=== PATIENT | male | born 1950 | race Caucasian/White ===

== ENCOUNTER 2016-11-30 11:40 | Inpatient (IN) | payer OTHER ==
[~2016-11-30 11:40] MED LIST: BACITRACIN 50,000 UNITS/10 ML SYR IRR ONE; BUPIVACAINE/EPI 0.25% 30 ML SDV ONE; CHLORHEXIDINE GLUC HIBICLENS 118 ML BTL TP ONE; THROMBIN (BOVINE) 20,000 UNIT VIAL TP ONE; morphINE PF 5 MG/10 ML INJ IT ONE
[2016-11-30] MEDS ORDERED: LIDOCAINE 1% 2 ML INJ ONE (11:58)
[2016-11-30] MEDS ORDERED: VANCOMYCIN HCL/NORMAL SALINE 250 ML IV ONE (12:30)
[2016-11-30] MEDS ORDERED: MIDAZOLAM 2 MG/2 ML VIAL ONE (13:24)
[2016-11-30] MEDS ORDERED: fentaNYL 250 MCG/5 ML INJ ONE (13:34)
[2016-11-30] MEDS ORDERED: PROPOFOL 200 MG/20 ML VIAL ONE ×2 (13:34→13:46)
[2016-11-30] MEDS ORDERED: ALBUTEROL 60 PUFFS/8 GM MDI IH PRN (13:36)
--- NOTE | 2016-11-30 13:36 | POSTOPPROG ---
Post Op Note Date of Operation: 12/01/16 Surgeon: Janna Be Forestry Supervisor: REILLY be PAC Anesthesia: GET(General Endotracheal) Pre-op Diagnosis: lumbar stenosis Post-op Diagnosis: lumbar stenosis Indication: lumbar stenosis, failure of meidcal management Procedure: L3/4 laminectomy/TLIF/PSF, L2/3 hemilaminotomy Inf/Abcess present in the surg proc area at time of surgery?: No EBL: 100cc Drains: Huang WOODARD Addendum - Addendum .: S: low back pain O: NAD A&Ox3 MAEx4 5/5 and equal in BUE and BLE. Plan -Advance diet as tolerated -Post op xrays pending -Optimize pain management -BETTYE x1 -DVT prophx: TEDS, SCDs, Lovenox okay POD1 -LSO when OOB -Please notify NS with any change in neuro/motor exam
[2016-11-30] MEDS ORDERED: POLYETHYLENE GLYCOL 3350 17 GM PKT PO PRN (13:37)
[2016-11-30] MEDS ORDERED: MAGNESIUM HYDROXIDE 30 ML UDCUP PO PRN (13:37)
[2016-11-30] MEDS ORDERED: LACTULOSE 20 GM/30 ML UDCUP PO PRN (13:37)
[2016-11-30] MEDS ORDERED: ACETAMINOPHEN 325 MG TAB PO PRN (13:37)
[2016-11-30] MEDS ORDERED: DIAZEPAM 10 MG/2 ML SYR IVP PRN (13:37)
[2016-11-30] MEDS ORDERED: ONDANSETRON 4 MG/2 ML VIAL IVP PRN (13:37)
[2016-11-30] MEDS ORDERED: ONDANSETRON DISINTEGRATING 4 MG TAB PO PRN (13:37)
[2016-11-30] MEDS ORDERED: BISACODYL 10 MG SUPP PR PRN (13:37)
[2016-11-30] MEDS ORDERED: KETAMINE 100 MG/10 ML SYR IVP ONE (13:45)
[2016-11-30] MEDS ORDERED: REMIFENTANIL HCL 1 MG VIAL ONE (13:45)
[2016-11-30] MEDS ORDERED: NS W/ 20 KCl/L 1,000 ML IV SCH (13:45)
[2016-11-30] MEDS ORDERED: PROPOFOL/EMULSION 500 MG/50 ML BOTTLE IV ONE (13:46)
[2016-11-30] MEDS ORDERED: morphINE PF 5 MG/10 ML INJ ONE (16:00)
[2016-11-30] MEDS ORDERED: fentaNYL 100 MCG/2 ML INJ ONE ×2 (16:32→16:53)
[2016-11-30] MEDS ORDERED: HYDROmorphONE/DILAUDID 2 MG/ML INJ ONE (16:53)
[2016-11-30] MEDS ORDERED: DIAZEPAM 10 MG/2 ML SYR ONE (17:29)
[2016-11-30] MEDS: SENNOSIDES/DOCUSATE SODIUM TAB PO SCH (20:03)
[2016-11-30] MEDS: METHOCARBAMOL 750 MG TAB PO PRN (20:03)
[2016-11-30] MEDS: INSULIN GLARGINE 100 UNITS/ML SYRINGE SC SCH (20:03)
[2016-11-30] MEDS: FAMOTIDINE 20 MG TAB PO SCH (20:03)
[2016-11-30] MEDS ORDERED: PNEUMOC 13-VAL CONJ-DIP CRM/PF 0.5 ML SYR IM ONE (20:17)
[2016-11-30] MEDS ORDERED: FAMOTIDINE 20 MG/NACL 50 ML IV SCH (21:00)
--- NOTE | 2016-11-30 22:48 | GOP ---
[f rep st] OPERATIVE REPORT DATE OF OPERATION: 11/30/2016 SURGEON: Luke Blount MD COMPLICATIONS: None. NEIGHBORHOOD COORDINATOR: Janna Be PA-C. ANESTHESIA: General PREOPERATIVE DIAGNOSIS: 1. L3-L4 severe spinal stenosis with spondylosis. 2. L2-L3 moderate central stenosis. 3. Low back pain and lower extremity radiculopathy. 4. Treatment refractory to nonoperative intervention. POSTOPERATIVE DIAGNOSIS: 1. L3-L4 severe spinal stenosis with spondylosis. 2. L2-L3 moderate central stenosis. 3. Low back pain and lower extremity radiculopathy. 4. Treatment refractory to nonoperative intervention. PROCEDURE PERFORMED: 1. Posterior arthrodesis with approach to L2, L3, L4. 2. Posterior fusion with bilateral pedicle screw placement into L3 and L4 from the Breaker system. 3. L3-L4 laminectomy with bilateral medial facetectomies. 4. Right-sided L2-L3 hemilaminotomy with medial facetectomy and central decompression. 5. Posterolateral fusion on the left between L3 and L4 with morselized autograft and allograft. 6. Right-sided L3-L4 transforaminal lumbar interbody fusion with a 9 mm titanium PEEK elevate cage filled with morselized autograft and allograft. 7. Use of intraoperative 3D Stealth navigation. 8. Use of intraoperative fluoroscopy, less than 1 hour physician time. 9. Use of neuromonitoring. 10. Use of operating microscope. 11. Injection of preservative-free intrathecal narcotics. FINDINGS: per imaging SPECIMENS: None. ESTIMATED BLOOD LOSS: 100 mL. INDICATIONS: The patient is a 66-year-old gentleman who presents with ongoing low back pain and lower extremity claudication. He had evidence of severe spinal stenosis at L3-L4 with moderate stenosis at L2-L3. After failing nonoperative intervention and after discussion of the risks, benefits, and alternatives, we decided to proceed forth with surgery as described above. DESCRIPTION OF PROCEDURE: Patient was brought to the operating theater and underwent general endotracheal anesthesia without complications. Venodynes and GURU hose and the appropriate lines were placed by Anesthesia. He was flipped prone onto the Huang table. All bony processes inspected and padded. The lower lumbar region was prepped and draped in the usual sterile surgical fashion. A time-out was completed per protocol, and the patient received antibiotics within 1 hour of incision. Using lateral fluoroscopy and a spinal needle, we picked our entry point to the L2 through L4 levels. This was marked in the midline and the incision infiltrated with Marcaine with epinephrine. The incision was taken down initially with the scalpel blade, and then using the monopolar, taken down to midline through the lumbodorsal fascia, and the subperiosteal dissection carried to the transverse process of L3 and L4. We also exposed the right side of L2-L3. Care was taken to preserve the L2-3 facet joints. Deep retractors were placed to maintain our exposure, and we confirmed our level using lateral fluoroscopy. We attached the 3D Stealth navigation clamp to the spinous process of L3 and completed a 3D Stealth navigation spin. Using 3D Stealth navigation, we placed the maritime pilot holes for the bilateral pedicle screws into L3 and L4. All holes were manually palpated with no evidence of any cortical breaches. We then tapped and placed 6.5 x 55 mm screws bilaterally into L3 and L4. Another 3D Stealth navigation spin demonstrated good placement of the hardware. At this point, the microscope was brought into field to assist with microscopic dissection and to maintain illumination and magnification. Using a combination of the bur tip on the drill bit, Kerrison punches and Leksell rongeur, we completed a right-sided L2-L3 hemilaminotomy with medial facetectomy and central decompression. We moved down to L3-L4 where we completed a full laminectomy with bilateral medial facetectomies. We resected the pars on the right side between L3-L4 and distracted the disc interspace. We completed a right-sided L3-L4 diskectomy and prepared the cartilaginous endplates. We measured the interbody space and placed a 9 mm titanium PEEK elevate cage filled with morselized autograft and allograft into the L3-L4 disk space. We packed additional morcellized autograft into the disk space for the interbody fusion. We let down distraction and decorticated the bone on the left side between L3 and L4. We placed 2 lordotic rods into the heads of the screws between L3 and L4 and secured them down with cap screws, which were then tightened per the detective investigator's setting. We irrigated the wound copiously with bacitracin irrigation and placed morselized autograft and allograft on the left side between L3-L4 for the posterolateral fusion. We injected preservative-free intrathecal narcotics and left a drain in subfascial space. The wound was closed in multiple layers using Vicryl sutures for deep layers and Dermabond for the skin. The patient's wounds were dressed sterilely. He was flipped supine onto the transfer cart where he was awakened and extubated and taken to the recovery room in stable condition. There were no complications and no noted changes on neuromonitoring throughout the procedure. /[id number]/MODL MTDD
[2016-12-01] MEDS ORDERED: VANCOMYCIN HCL/NORMAL SALINE 250 ML IV ONE (01:00)
[2016-12-01] MEDS: METHOCARBAMOL 750 MG TAB PO PRN ×3 (04:23→23:49)
--- NOTE | 2016-12-01 07:57 | NEUSURGPN ---
Assessment/Plan: 66 y/o male POD1 L3/4 laminectomy/TLIF/PSF, L2/3 hemilaminotomy Plan -Advance diet as tolerated -Post op xrays pending -Optimize pain management - Continue BETTYE x1 -DVT prophx: TEDS, SCDs, Lovenox okay POD1 -LSO when OOB -Please notify NS with any change in neuro/motor exam Subjective: low back pain. Denies any new leg pain/weakness. Gas pains Objective: NAD A&Ox3 MAEx4 5/ and equal in BUE and BLE. Catheter Insertion Date: 11/30/16 - Physician Patient Seen by DrBobbi: [facility] Physical Exam - Vitals, I&O, Labs I and O 11/30/16 12/01/16 12/02/16 05:59 05:59 05:59 Intake Total 3575 Output Total 1650 Balance 1925 Intake: Oral (ml) 500 IV Intake (ml) 2000 IV Infused (ml) 1075 NS W/ 20 KCl/L 1,000 ml @ 825 75 mls/hr IV CONT YANELY Rx #:[id number] Vancomycin HCl/Normal 250 Saline 250 ml @ 250 mls/ hr IV ONCE ONE Rx#: [id number] Output: Urine (ml) 1400 Catheter 1400 Estimated Blood Loss (ml) 200 Wound Drainage (ml) 50 Back Huang Watts 50 Other: Intake Quantity Yes Sufficient Vital Signs Temp Pulse Resp BP Pulse Ox 36.4 C 71 14 127/77 H 93 12/01/16 07:35 12/01/16 07:35 12/01/16 07:35 12/01/16 07:35 12/01/16 07:35 ICD10 Worksheet Patient Problems: Problems Problem Status Onset Asthma Acute Calculus of lower third of ureter Acute
[2016-12-01] MEDS: ATORVASTATIN CALCIUM 10 MG TAB PO SCH (08:24)
[2016-12-01] MEDS: CHOLECALCIFEROL VIT D3 2,000 UNITS TAB/CAP PO SCH (08:24)
[2016-12-01] MEDS: LEFLUNOMIDE 20 MG TAB PO SCH (08:24)
[2016-12-01] MEDS: MONTELUKAST SODIUM 10 MG TAB PO SCH (08:25)
[2016-12-01] MEDS: SENNOSIDES/DOCUSATE SODIUM TAB PO SCH (08:25)
[2016-12-01] MEDS: FAMOTIDINE 20 MG TAB PO SCH ×2 (08:25→20:10)
[2016-12-01] MEDS: LISINOPRIL 20 MG TAB PO SCH (08:25)
[2016-12-01] MEDS: INSULIN GLARGINE 100 UNITS/ML SYRINGE SC SCH ×2 (08:26→20:16)
[2016-12-01] MEDS: Fluticasone/Vilanterol [Breo Ellipta 200-25 Mcg Inh] 1 EACH IH SCH (08:53)
[2016-12-01] MEDS ORDERED: NON-FORMULARY NEW DRUG (Simvastatin [Zocor] 20 MG) PO SCH (09:00)
[2016-12-01] MEDS: SIMETHICONE 80 MG TAB CHEW PO PRN ×2 (10:36→16:39)
[2016-12-01] MEDS: DIAZEPAM 5 MG TAB PO PRN ×2 (10:36→20:10)
[2016-12-01] MEDS: oxyCODONE IR 5 MG TAB PO PRN ×3 (12:52→23:50)
[2016-12-01] MEDS: diphenhydrAMINE 25 MG CAP PO PRN ×2 (20:10→23:52)
[2016-12-02] MEDS: oxyCODONE IR 5 MG TAB PO PRN ×5 (03:46→23:01)
[2016-12-02] MEDS: SENNOSIDES/DOCUSATE SODIUM TAB PO SCH ×3 (04:55→20:46)
[2016-12-02] MEDS: DIAZEPAM 5 MG TAB PO PRN ×3 (07:23→21:36)
[2016-12-02] MEDS: LEFLUNOMIDE 20 MG TAB PO SCH (08:18)
[2016-12-02] MEDS: ATORVASTATIN CALCIUM 10 MG TAB PO SCH (08:18)
[2016-12-02] MEDS: CHOLECALCIFEROL VIT D3 2,000 UNITS TAB/CAP PO SCH (08:18)
[2016-12-02] MEDS: MONTELUKAST SODIUM 10 MG TAB PO SCH (08:18)
[2016-12-02] MEDS: Fluticasone/Vilanterol [Breo Ellipta 200-25 Mcg Inh] 1 EACH IH SCH (08:18)
[2016-12-02] MEDS: FAMOTIDINE 20 MG TAB PO SCH ×2 (08:18→20:46)
[2016-12-02] MEDS: LISINOPRIL 20 MG TAB PO SCH (08:18)
[2016-12-02] MEDS: INSULIN GLARGINE 100 UNITS/ML SYRINGE SC SCH ×2 (08:18→21:37)
--- NOTE | 2016-12-02 09:27 | NEUSURGPN ---
Assessment/Plan: 66 y/o male POD2 L3/4 laminectomy/TLIF/PSF, L2/3 hemilaminotomy Plan -Advance diet as tolerated -Post op xrays demonstrate intact hardware -Optimize pain management - D/c BETTYE drain -DVT prophx: TEDS, SCDs, Lovenox -LSO when OOB -Please notify NS with any change in neuro/motor exam Subjective: low back pain. Denies any new leg pain/weakness. Objective: NAD A&Ox3 MAEx4 5/5 and equal in BUE and BLE. Incision c/d/i Catheter Insertion Date: 11/30/16 - Physician Discussed Patient with : [facility] Physical Exam - Vitals, I&O, Labs I and O 12/01/16 12/02/16 12/03/16 05:59 05:59 05:59 Intake Total 3575 500 Output Total 1650 3135 100 Balance 1925 -2635 -100 Intake: Oral (ml) 500 500 IV Intake (ml) 2000 IV Infused (ml) 1075 NS W/ 20 KCl/L 1,000 ml @ 825 75 mls/hr IV CONT YANELY Rx #:[id number] Vancomycin HCl/Normal 250 Saline 250 ml @ 250 mls/ hr IV ONCE ONE Rx#: [id number] Output: Urine (ml) 1400 3125 100 Catheter 1400 Toilet 1600 100 Urinal 1525 Estimated Blood Loss (ml) 200 Wound Drainage (ml) 50 10 Back Huang Watts 50 10 Other: Intake Quantity Yes Sufficient Number of Voids Toilet 2 Urinal 1 Vital Signs Temp Pulse Resp BP Pulse Ox 36.9 C 97 15 129/75 H 95 12/02/16 07:56 12/02/16 07:56 12/02/16 07:56 12/02/16 08:18 12/02/16 07:56 ICD10 Worksheet Patient Problems: Problems Problem Status Onset Asthma Acute Calculus of lower third of ureter Acute
[2016-12-02] MEDS: ENOXAPARIN 40 MG/0.4 ML SYR SC SCH (10:40)
[2016-12-02] MEDS: morphINE SR 15 MG TAB PO SCH ×2 (10:40→20:46)
[2016-12-02] MEDS: SIMETHICONE 80 MG TAB CHEW PO PRN (10:54)
[2016-12-02] MEDS: METHOCARBAMOL 750 MG TAB PO PRN ×3 (13:22→23:01)
[2016-12-02 23:07] VITALS: RESP 16
[2016-12-03] MEDS: oxyCODONE IR 5 MG TAB PO PRN ×2 (04:13→11:45)
[2016-12-03] MEDS: DIAZEPAM 5 MG TAB PO PRN (04:13)
[2016-12-03 07:16] VITALS: BP 108/68; PULSE 80; TEMP 99.7; O2SAT 91
[2016-12-03] MEDS: METHOCARBAMOL 750 MG TAB PO PRN ×2 (07:54→13:46)
[2016-12-03] MEDS: SENNOSIDES/DOCUSATE SODIUM TAB PO SCH (07:54)
[2016-12-03] MEDS: LEFLUNOMIDE 20 MG TAB PO SCH (07:55)
[2016-12-03] MEDS: morphINE SR 15 MG TAB PO SCH (07:55)
[2016-12-03] MEDS: CHOLECALCIFEROL VIT D3 2,000 UNITS TAB/CAP PO SCH (07:55)
[2016-12-03] MEDS: FAMOTIDINE 20 MG TAB PO SCH (07:56)
[2016-12-03] MEDS: INSULIN GLARGINE 100 UNITS/ML SYRINGE SC SCH (07:56)
[2016-12-03] MEDS: ATORVASTATIN CALCIUM 10 MG TAB PO SCH (07:56)
[2016-12-03] MEDS: ENOXAPARIN 40 MG/0.4 ML SYR SC SCH (07:56)
[2016-12-03] MEDS: MONTELUKAST SODIUM 10 MG TAB PO SCH (07:56)
[2016-12-03] MEDS: Fluticasone/Vilanterol [Breo Ellipta 200-25 Mcg Inh] 1 EACH IH SCH (07:57)
[2016-12-03] MEDS: LISINOPRIL 20 MG TAB PO SCH (08:46)
--- NOTE | 2016-12-03 09:15 | NEUSURGPN ---
Assessment/Plan: 66 y/o male POD3 L3/4 laminectomy/TLIF/PSF, L2/3 hemilaminotomy Plan -Advance diet as tolerated -Post op xrays demonstrate intact hardware -Optimize pain management, Improved since adding MsContin yesterday -DVT prophx: TEDS, SCDs, Lovenox -LSO when OOB -Please notify NS with any change in neuro/motor exam Subjective: low back pain, improved slightly since yesterday Objective: NAD A&Ox3 MAEx4 5/5 and equal in BUE and BLE. Incision c/d/i Catheter Insertion Date: 11/30/16 - Physician Discussed Patient with : [facility] Physical Exam - Vitals, I&O, Labs I and O 12/02/16 12/03/16 12/04/16 05:59 05:59 05:59 Intake Total 500 2000 Output Total 3135 325 Balance -2635 1675 Intake: Oral (ml) 500 2000 Output: Urine (ml) 3125 325 Toilet 1600 100 Urinal 1525 225 Wound Drainage (ml) 10 Back Huang Watts 10 Other: Number of Voids Toilet 2 5 Urinal 1 Vital Signs Temp Pulse Resp BP Pulse Ox 37.6 C 80 16 108/68 91 L 12/03/16 07:14 12/03/16 07:14 12/03/16 07:14 12/03/16 07:14 12/03/16 07:14 ICD10 Worksheet Patient Problems: Problems Problem Status Onset Asthma Acute Calculus of lower third of ureter Acute
--- NOTE | 2016-12-03 14:52 | PDIAF ---
- Diagnosis Code Status: Full Code - Medication Management Discharge Medications: Medications to Continue on Transfer Albuterol [Proventil Inhaler HFA (*)] 1 puffs IH Q4 PRN 11/12/13 [Last Taken ] Insulin Glargine [Lantus 100 UNITS/ML (*)] 20 units SC HS 11/12/13 [Last Taken 11/29/16] Leflunomide [Arava 20 mg (*)] 20 mg PO DAILY 11/12/13 [Last Taken 11/28/16] Montelukast Sodium [Singulair 10 mg (*)] 10 mg PO DAILY 10/23/14 [Last Taken ] Cholecalciferol Vit D3 [Vitamin D3 2000 units tab (OTC)] 2,000 units PO DAILY [Last Taken 11/30/16] Fluticasone/Vilanterol [Breo Ellipta 200-25 Mcg INH] 1 each IH DAILY 11/08/16 [ Last Taken 11/30/16] Insulin Glargine [Lantus 100 UNITS/ML (*)] 10 units SC DAILY 11/08/16 [Last Taken 11/30/16] Lisinopril [Zestril 20 mg (*)] 20 mg PO DAILY 11/08/16 [Last Taken 11/30/16] Simvastatin [Zocor] 20 mg PO DAILY 11/08/16 [Last Taken 11/30/16] Methocarbamol [Robaxin 750 mg (*)] 750 mg PO QID PRN #0 tab 12/03/16 [Last Taken Unknown] Sennosides/Docusate Sodium [Senokot-S] 1 - 2 tab PO BID #0 tab 12/03/16 [Last Taken Unknown] morphINE SR [Ms Contin/Oramorph 15 mg (*)] 15 mg PO BID #0 tab 12/03/16 [Last Taken Unknown] oxyCODONE IR [Oxycodone Ir (*)] 5 - 10 mg PO Q4 PRN #0 tab 12/03/16 [Last Taken Unknown] Discharge Medications: Refer to the Discharge Home Medication list for PRN reason. - Orders Services needed: Home Care, Physical Therapy, Occupational Therapy Home Care Face to Face: I certify that this patient was under my care and that I had the required [id number] encounter meeting the encounter requirements on the discharge day. My findings support the fact that the patient is homebound as defined in CMS Chapter 7 Medicare Benefits Manual 30.1.1, The condition of the patient is such that there exists a normal inability to leave home and consequently, leaving home would require a considerable and taxing effort. Diet Recommendation: no restrictions on diet Diet Texture: Regular Texture Diet - Follow Up Care Current Providers and Referrals: Eliu Carrasquillo MD [Primary Care Provider] -
== END 2016-12-03 14:35 | disposition home health service (06) | DRG 460 ==
LOC: F3N 11:40
PROVIDERS: ADMIT Neurological Surgery; ATTEND Neurological Surgery
DX: M47.26 Other spondylosis with radiculopathy, lumbar region (principal); M48.06 Spinal stenosis, lumbar region; M51.36 Other intervertebral disc degeneration, lumbar region; Z23 Encounter for immunization
CPT/HCPCS: 97116-GP; 97161-GP; 97166-GO; 97535-GO; C1713; G0009; G8978-GP-CI; G8978-GP-CJ; G8979-GP-CI; G8980-GP-CI; G8987-GO-CJ; G8988-GO-CI; G8989-GO-CI; J1170; J1650; J1815; J2250; J2274; J2704; J3010; J3370

== ENCOUNTER 2016-12-06 22:54 | Emergency (ER) | payer OTHER ==
[2016-12-06] MEDS ORDERED: HYDROmorphONE/DILAUDID 1 MG/ML SYR IVP PRN (23:28)
--- NOTE | 2016-12-06 23:32 | EDPHY ---
H & P Stated Complaint: spinal fusion on 11/30- increased pain Time Seen by Provider: 12/06/16 23:22 HPI/ROS: Chief Complaint: Back pain HPI: 66-year-old male who is 6 days post lumbar spinal fusion by Dr. Blount. Patient has been progressing well with the surgery started physical therapy 3 days ago. He has had worsening pain today and has been using increasing amounts of oxycodone without significant relief. No fevers or chills. No new numbness or weakness. Pain is in the bilateral paraspinal area had surgery size. He has not had any discharge from the wound. Is denies any redness. Has had some constipation. No nausea or vomiting. ROS: 10 point Review of Systems is negative except as noted in the HPI. PMH: Hypertension, type 2 diabetes, back pain status post spinal fusion Social History: smoking history, no alcohol, no recreational drug use Family History: non-contributory Physical Exam: Gen: Awake, Alert, uncomfortable appearing HEENT: Nose: no rhinorrhea Eyes: PERRLA, EOMI Mouth: Moist mucosa Neck: Supple, no JVD Chest: nontender, lungs clear to auscultation Heart: S1, S2 normal, no murmur Abd: Soft, non-tender, no guarding Back: no CVA tenderness, midline lumbar incision is intact, there is no erythema , there is no discharge. He has bilateral paraspinal soft tissue tenderness. There is no fluctuance. Ext: no edema, non-tender Skin: no rash Neuro: CN II-XII intact, Sensation grossly intact, Strength 5/5 in bilateral upper and lower extremities - Personal History Tetanus Vaccine Date: 2002 - Medical/Surgical History Hx Asthma: Yes Hx Chronic Respiratory Disease: No Hx Diabetes: Yes Hx Cardiac Disease: No Hx Renal Disease: No Hx Cirrhosis: No Hx Alcoholism: No Hx HIV/AIDS: No Hx Splenectomy or Spleen Trauma: No Other PMH: Asthma, RA, Diabetes Type 2. Disc surg, wrist surg, R TKA, screws in L hip - Social History Smoking Status: Never smoked Constitutional: Initial Vital Signs Temperature (C) 37.3 C 12/06/16 22:57 Heart Rate 84 12/06/16 22:57 Respiratory Rate 20 12/06/16 22:57 Blood Pressure 123/76 H 12/06/16 22:57 O2 Sat (%) 91 L 12/06/16 22:57 O2 Delivery Mode Room Air Allergies/Adverse Reactions: Penicillins Allergy (Verified 12/06/16 22:57) Unknown Home Medications: Medication Instructions Recorded Albuterol [Proventil Inhaler HFA 1 puffs IH Q4 PRN 11/12/13 (*)] Insulin Glargine [Lantus 100 20 units SC HS 11/12/13 UNITS/ML (*)] Leflunomide [Arava 20 mg (*)] 20 mg PO DAILY 11/12/13 Montelukast Sodium [Singulair 10 10 mg PO DAILY 10/23/14 mg (*)] Cholecalciferol Vit D3 [Vitamin D3 2,000 units PO DAILY 11/08/16 2000 units tab (OTC)] Fluticasone/Vilanterol [Breo 1 each IH DAILY 11/08/16 Ellipta 200-25 Mcg INH] Insulin Glargine [Lantus 100 10 units SC DAILY 11/08/16 UNITS/ML (*)] Lisinopril [Zestril 20 mg (*)] 20 mg PO DAILY 11/08/16 Simvastatin [Zocor] 20 mg PO DAILY 11/08/16 Methocarbamol [Robaxin 750 mg (*)] 750 mg PO QID PRN #0 tab 12/03/16 Sennosides/Docusate Sodium 1 - 2 tab PO BID #0 tab 12/03/16 [Senokot-S] morphINE SR [Ms Contin/Oramorph 15 15 mg PO BID #0 tab 12/03/16 mg (*)] oxyCODONE IR [Oxycodone Ir (*)] 5 - 10 mg PO Q4 PRN #0 tab 12/03/16 Medical Decision Making ED Course/Re-evaluation: Patient is improved after IV Dilaudid. CBC is normal. There are no exam findings suggestive of infection. He is afebrile. Wound is intact without erythema. I have discussed with Dr. Blount, the patient's neurosurgeon. He agrees with plan for discharge home. He will follow up with the patient tomorrow for re-evaluation and analgesia plans. - Data Points Laboratory Results: Laboratory Results 12/07/16 00:15 12/07/16 00:15 12/07/16 12/07/16 12/07/16 01:04 00:15 00:15 WBC 7.97 10^3/uL 10^3/uL (3.80-9.50) RBC 3.89 10^6/uL L 10^6/uL (4.40-6.38) Hgb 11.4 g/dL L g/dL (13.7-17.5) Hct 33.6 % L % (40.0-51.0) MCV 86.4 fL fL (81.5-99.8) MCH 29.3 pg pg (27.9-34.1) MCHC 33.9 g/dL g/dL (32.4-36.7) RDW 12.7 % % (11.5-15.2) Plt Count 296 10^3/uL 10^3/uL (150-400) MPV 8.8 fL fL (8.7-11.7) Neut % (Auto) 61.9 % % (39.3-74.2) Lymph % (Auto) 15.6 % % (15.0-45.0) [place] % (Auto) 14.1 % H % (4.5-13.0) Eos % (Auto) 7.2 % % (0.6-7.6) Baso % (Auto) 0.8 % % (0.3-1.7) Nucleat RBC Rel Count 0.0 % % (0.0-0.2) Absolute Neuts (auto) 4.95 10^3/uL 10^3/uL (1.70-6.50) Absolute Lymphs (auto) 1.24 10^3/uL 10^3/uL (1.00-3.00) Absolute Monos (auto) 1.12 10^3/uL H 10^3/uL (0.30-0.80) Absolute Eos (auto) 0.57 10^3/uL H 10^3/uL (0.03-0.40) Absolute Basos (auto) 0.06 10^3/uL 10^3/uL (0.02-0.10) Absolute Nucleated RBC 0.00 10^3/uL 10^3/uL (0-0.01) Immature Gran % 0.4 % % (0.0-1.1) Immature Gran # 0.03 10^3/uL 10^3/uL (0.00-0.10) Sodium 134 mEq/L mEq/L (134-144) Potassium 4.5 mEq/L mEq/L (3.5-5.2) Chloride 99 mEq/L mEq/L (97-110) Carbon Dioxide 23 mEq/l mEq/l (22-31) Anion Gap 12 mEq/L mEq/L (8-16) BUN 16 mg/dL mg/dL (7-23) Creatinine 0.7 mg/dL mg/dL (0.7-1.3) Estimated GFR > 60 Glucose 130 mg/dL H mg/dL (70-100) Calcium 9.3 mg/dL mg/dL (8.5-10.4) Urine Color YELLOW Urine Appearance CLEAR Urine pH 6.0 (5.0-7.5) Ur Specific [place] 1.011 (1.002-1.030) Urine Protein NEGATIVE (NEGATIVE) Urine Ketones NEGATIVE (NEGATIVE) Urine Blood NEGATIVE (NEGATIVE) Urine Nitrate NEGATIVE (NEGATIVE) Urine Bilirubin NEGATIVE (NEGATIVE) Urine Urobilinogen NEGATIVE EU EU (0.2-1.0) Ur Leukocyte Esterase NEGATIVE (NEGATIVE) Urine RBC NONE SEEN /hpf /hpf (0-3) Urine WBC NONE SEEN /hpf /hpf (0-3) Ur Epithelial Cells NONE SEEN /lpf /lpf (NONE-1+) Urine Mucus TRACE /lpf /lpf (NONE-1+) Urine Glucose NEGATIVE (NEGATIVE) Medications Given: Discontinued Medications Hydromorphone HCl (Dilaudid) 0.5 mg IVP Q4HRS PRN PRN Reason: Pain, Severe Unable to Take PO Stop: 12/16/16 23:27 Last Admin: 12/07/16 00:20 Dose: 0.5 mg Departure - Departure Disposition: Home, Routine, Self-Care Clinical Impression: Back pain Condition: Good Instructions: Back Pain (ED) Additional Instructions: Follow up with Dr. Blount tomorrow. Refer return emergency depart for increasing pain, fevers, chills, or any other concerns. Referrals: Luke Blount MD [Medical Doctor] - As per Instructions
[2016-12-07 00:27] LABS: % IMMATURE GRANULYOCYTES 0.4 % (0.0-1.1); ABSOLUTE IMMATURE GRANULOCYTES 0.03 10^3/uL (0.00-0.10); ADD DIFF? NO; ADD MORPH? NO; ADD SCAN? NO; ATYPICAL LYMPHOCYTE FLAG 40 (0-99); FRAGMENT RBC FLAG 0 (0-99); HEMATOCRIT 33.6 % (40.0-51.0); HEMOGLOBIN 11.4 g/dL (13.7-17.5); LEFT SHIFT FLG 10 (0-99); LIPEMIA HEMOLYSIS FLAG 90 (0-99); MEAN CELL HEMOGLOBIN 29.3 pg (27.9-34.1); MEAN CELL HEMOGLOBIN CONCENTR. 33.9 g/dL (32.4-36.7); MEAN CELL VOLUME 86.4 fL (81.5-99.8); MEAN PLATELET VOLUME 8.8 fL (8.7-11.7); PLATELET CLUMPS FLAG 0 (0-99); PLATELET COUNT 296 10^3/uL (150-400); RED BLOOD CELL COUNT 3.89 10^6/uL (4.40-6.38); RED CELL DISTRIBUTION WIDTH 12.7 % (11.5-15.2)
[2016-12-07 00:42] LABS: ANION GAP 12 mEq/L (8-16); CALCIUM 9.3 mg/dL (8.5-10.4); CARBON DIOXIDE 23 mEq/l (22-31); CHLORIDE 99 mEq/L (97-110); CREATININE 0.7 mg/dL (0.7-1.3); GLOMERULAR FILTRATION RATE > 60; GLUCOSE 130 mg/dL (70-100); POTASSIUM 4.5 mEq/L (3.5-5.2); SODIUM 134 mEq/L (134-144)
[2016-12-07 01:29] LABS: COLOR YELLOW; LEUKOCYTE ESTERASE,URINE NEGATIVE (NEGATIVE); NITRITE,URINE NEGATIVE (NEGATIVE)
[2016-12-07 01:45] LABS: MUCUS TRACE /lpf (NONE-1+)
[2016-12-07 01:56] LABS: RBC,URINE NONE SEEN /hpf (0-3); WBC,URINE NONE SEEN /hpf (0-3)
[2016-12-07 01:58] VITALS: BP 131/74; PULSE 74; RESP 16; TEMP 97.9; O2SAT 96
== END 2016-12-07 01:58 | disposition home or self-care (01) ==
DX: M54.9 Dorsalgia, unspecified (principal); G89.18 Other acute postprocedural pain; I10 Essential (primary) hypertension; E11.9 Type 2 diabetes mellitus without complications; J45.909 Unspecified asthma, uncomplicated; Z79.4 Long term (current) use of insulin; Z87.891 Personal history of nicotine dependence
CPT/HCPCS: 96374; 99284; J1170

== ENCOUNTER → 2017-01-05 | Outpatient (CLI) | payer OTHER | LOC: BMCIMAGING 12:43 | PROVIDERS: ATTEND Physician Assistant | DX: Z09 Encounter for follow-up examination after completed treatment for conditions other than malignant neoplasm (principal); Z98.1 Arthrodesis status; M47.896 Other spondylosis, lumbar region ==

== ENCOUNTER → 2017-02-19 | Outpatient (CLI) | payer OTHER | LOC: FIMAGING 10:36 | PROVIDERS: ATTEND Physician Assistant | DX: Z98.1 Arthrodesis status (principal) ==

== ENCOUNTER → 2017-05-14 | Outpatient (CLI) | payer OTHER | LOC: FIMAGING 11:34 | PROVIDERS: ATTEND Physician Assistant | DX: M51.36 Other intervertebral disc degeneration, lumbar region (principal); M51.37 Other intervertebral disc degeneration, lumbosacral region; M46.96 Unspecified inflammatory spondylopathy, lumbar region; Z98.1 Arthrodesis status ==

== ENCOUNTER → 2017-08-08 | Outpatient (CLI) | payer OTHER | LOC: BMCIMAGING 12:27 | PROVIDERS: ATTEND Internal Medicine Rheumatology | DX: M25.551 Pain in right hip (principal); M16.0 Bilateral primary osteoarthritis of hip ==

== ENCOUNTER → 2017-08-10 | Outpatient (CLI) | payer OTHER | LOC: BMCIMAGING 16:09 | PROVIDERS: ATTEND Internal Medicine Rheumatology | DX: M23.41 Loose body in knee, right knee (principal) ==

== ENCOUNTER → 2017-08-16 | Outpatient (CLI) | payer OTHER | LOC: BMCIMAGING 10:58 | PROVIDERS: ATTEND Orthopaedic Surgery Hand Surgery | DX: L08.9 Local infection of the skin and subcutaneous tissue, unspecified (principal); M19.041 Primary osteoarthritis, right hand ==

== ENCOUNTER → 2017-09-11 | Outpatient (CLI) | payer OTHER | LOC: FIMAGING 10:50 | PROVIDERS: ATTEND Orthopaedic Surgery | DX: Z96.651 Presence of right artificial knee joint (principal); M17.12 Unilateral primary osteoarthritis, left knee | CPT/HCPCS: 78315; A9503 ==

== ENCOUNTER → 2017-12-18 | Outpatient (CLI) | payer OTHER | LOC: BMCIMAGING 14:23 | PROVIDERS: ATTEND Physician Assistant | DX: Z09 Encounter for follow-up examination after completed treatment for conditions other than malignant neoplasm (principal); Z98.1 Arthrodesis status ==

== ENCOUNTER 2018-04-30 10:24 | Emergency (ER) | payer OTHER ==
--- NOTE | 2018-04-30 11:11 | EDPHY ---
H & P Stated Complaint: LLQ pain Time Seen by Provider: 04/30/18 11:03 HPI/ROS: CHIEF COMPLAINT: Left lower quadrant pain HISTORY OF PRESENT ILLNESS: The patient presents to the ED with a several day history of worsening left lower quadrant pain. The patient was seen at urgent care referred to the ED for further workup. The patient reports a negative colonoscopy within the past year. He denies any fever or melena. He denies any complaints of flank pain or hematuria. REVIEW OF SYSTEMS: A comprehensive 10 point review of systems is otherwise negative aside from elements mentioned in the history of present illness. Source: Patient Exam Limitations: No limitations - Personal History Current Tetanus/Diphtheria Vaccine: Yes Current Tetanus Diphtheria and Acellular Pertussis (TDAP): Yes Tetanus Vaccine Date: 2002 - Medical/Surgical History Hx Asthma: Yes Hx Chronic Respiratory Disease: No Hx Diabetes: Yes Hx Cardiac Disease: No Hx Renal Disease: No Hx Cirrhosis: No Hx Alcoholism: No Hx HIV/AIDS: No Hx Splenectomy or Spleen Trauma: No Other PMH: Asthma, RA, Diabetes Type 2. Disc surg, wrist surg, R TKA, screws in L hip - Social History Smoking Status: Never smoked - Physical Exam Exam: General Appearance: Alert, no distress Eyes: Pupils equal and round no pallor or injection ENT, Mouth: Mucous membranes moist Respiratory: There are no retractions, lungs are clear to auscultation Cardiovascular: Regular rate and rhythm Gastrointestinal: Tenderness to palpation in the left lower quadrant with mild rebound, no peritoneal signs Neurological: 5/5 strength all 4 extremities Skin: Warm and dry, no rashes Musculoskeletal: Neck is supple nontender Extremities: symmetrical, full range of motion Constitutional: Initial Vital Signs Temperature (C) 36.6 C 04/30/18 10:31 Heart Rate 67 04/30/18 10:31 Respiratory Rate 16 04/30/18 10:31 Blood Pressure 142/78 H 04/30/18 10:31 O2 Sat (%) 94 04/30/18 10:31 O2 Delivery Mode Room Air Allergies/Adverse Reactions: Penicillins Allergy (Verified 12/06/16 22:57) Unknown Home Medications: Medication Instructions Recorded Albuterol [Proventil Inhaler HFA 1 puffs IH Q4 PRN 11/12/13 (*)] Insulin Glargine [Lantus 100 20 units SC HS 11/12/13 UNITS/ML (*)] Leflunomide [Arava 20 mg (*)] 20 mg PO DAILY 11/12/13 Montelukast Sodium [Singulair 10 10 mg PO DAILY 10/23/14 mg (*)] Cholecalciferol Vit D3 [Vitamin D3 2,000 units PO DAILY 11/08/16 2000 units tab (OTC)] Fluticasone/Vilanterol [Breo 1 each IH DAILY 11/08/16 Ellipta 200-25 Mcg INH] Insulin Glargine [Lantus 100 10 units SC DAILY 11/08/16 UNITS/ML (*)] Lisinopril [Zestril 20 mg (*)] 20 mg PO DAILY 11/08/16 Simvastatin [Zocor] 20 mg PO DAILY 11/08/16 oxyCODONE IR [Oxycodone Ir (*)] 5 - 10 mg PO Q4 PRN #0 tab 12/03/16 Remicade Inj 100 mg (*) 04/30/18 Sulindac 04/30/18 levOFLOXACIN [Levaquin] 500 mg PO DAILY #10 tab 04/30/18 metroNIDAZOLE [Flagyl 500 mg (*)] 500 mg PO TID #30 tab 04/30/18 Medical Decision Making - Diagnostics Imaging Results: Imaging Impressions Abdomen CT 04/30/18 11:40 Impression: 1. Sigmoid diverticulitis. No abscess or perforation. 2. Indeterminate right renal lesion may represent a proteinaceous versus hemorrhagic cyst. Recommend follow-up renal ultrasound to further characterize. Findings discussed with Emergency Department physician, Dr. Mike Barry on April 30, 2018 at 1219 hours. ED Course/Re-evaluation: The patient presents to the ED for evaluation of several days of left lower quadrant pain. The patient was noted to have mild left lower quadrant tenderness on exam. His vital signs were stable. The patient was noted to have no significant leukocytosis. The patient was taken for CT scan of the abdomen pelvis for further evaluation of his symptoms and tenderness. The patient is noted to have uncomplicated sigmoid diverticulitis. An incidental likely renal cyst was noted. The patient does appear appropriate for outpatient management. He has no evidence of a perforation or abscess. The patient will be discharged home with Levaquin and Flagyl for the next 10 days. The patient has been instructed to return to the ED for markedly worsening pain, fever, vomiting or other concerns. The patient will follow up as an outpatient with his primary care provider for further evaluation of his likely renal cyst. I re-evaluated the patient at 12:30 p.m.. He is in no acute distress and is comfortable with the plan Differential Diagnosis: Differential diagnosis considered includes perforation, obstruction, diverticulitis, gastroenteritis, mesenteric adenitis - Data Points Laboratory Results: Laboratory Results 04/30/18 11:15 18 04/30/18 11:22 11:15 WBC 6.40 10^3/uL 10^3/uL (3.80-9.50) RBC 4.38 10^6/uL L 10^6/uL (4.40-6.38) Hgb 13.7 g/dL g/dL (13.7-17.5) POC Hgb 14.6 gm/dL gm/dL (13.7-17.5) Hct 40.1 % % (40.0-51.0) POC Hct 43 % % (40-51) MCV 91.6 fL fL (81.5-99.8) MCH 31.3 pg pg (27.9-34.1) MCHC 34.2 g/dL g/dL (32.4-36.7) RDW 13.2 % % (11.5-15.2) Plt Count 197 10^3/uL 10^3/uL (150-400) MPV 9.7 fL fL (8.7-11.7) Neut % (Auto) 58.5 % % (39.3-74.2) Lymph % (Auto) 23.8 % % (15.0-45.0) [place] % (Auto) 12.5 % % (4.5-13.0) Eos % (Auto) 4.1 % % (0.6-7.6) Baso % (Auto) 0.9 % % (0.3-1.7) Nucleat RBC Rel Count 0.0 % % (0.0-0.2) Absolute Neuts (auto) 3.75 10^3/uL 10^3/uL (1.70-6.50) Absolute Lymphs (auto) 1.52 10^3/uL 10^3/uL (1.00-3.00) Absolute Monos (auto) 0.80 10^3/uL 10^3/uL (0.30-0.80) Absolute Eos (auto) 0.26 10^3/uL 10^3/uL (0.03-0.40) Absolute Basos (auto) 0.06 10^3/uL 10^3/uL (0.02-0.10) Absolute Nucleated RBC 0.00 10^3/uL 10^3/uL (0-0.01) Immature Gran % 0.2 % % (0.0-1.1) Immature Gran # 0.01 10^3/uL 10^3/uL (0.00-0.10) POC Sodium 140 mEq/L mEq/L (135-145) POC Potassium 3.6 mEq/L mEq/L (3.3-5.0) POC Chloride 107 mEq/L mEq/L (97-110) POC BUN 14 mg/dL mg/dL (7-23) POC Creatinine 0.6 mg/dL L mg/dL (0.7-1.3) POC Glucose 227 mg/dL H mg/dL (70-100) Point of Care Test Results: Chemistry 04/30/18 11:22 POC Sodium 140 mEq/L mEq/L (135-145) POC Potassium 3.6 mEq/L mEq/L (3.3-5.0) POC Chloride 107 mEq/L mEq/L (97-110) POC BUN 14 mg/dL mg/dL (7-23) POC Creatinine 0.6 mg/dL L mg/dL (0.7-1.3) POC Glucose 227 mg/dL H mg/dL (70-100) ISTAT H&H 04/30/18 11:22 POC Hgb 14.6 gm/dL gm/dL (13.7-17.5) POC Hct 43 % % (40-51) Departure - Departure Disposition: Home, Routine, Self-Care Clinical Impression: Diverticulitis Condition: Good Instructions: Diverticulitis (ED), Diverticulitis Diet (ED) Additional Instructions: 1. Please take antibiotics as directed for your diverticulitis. 2. Please return to the ED for markedly worsening symptoms including increasing pain, fever, vomiting or other concerns. 3. [place] as needed for pain. 4. You do have a likely cyst noted on your kidney. Our radiologist does recommend an outpatient ultrasound for further characterization. Please schedule an appointment with your primary care provider Dr. Carrasquillo to arrange this as an outpatient. Referrals: Eliu Carrasquillo MD [Primary Care Provider] - As per Instructions
[2018-04-30 11:23] LABS: PLATELET COUNT 197 10^3/uL (150-400)
[2018-04-30] MEDS ORDERED: IOPAMIDOL (ISOVUE-300) 100 ML BTL ONE (11:54)
[2018-04-30 12:19] VITALS: BP 121/96
== END 2018-04-30 12:45 | disposition home or self-care (01) ==
DX: K57.92 Diverticulitis of intestine, part unspecified, without perforation or abscess without bleeding (principal); E11.9 Type 2 diabetes mellitus without complications
CPT/HCPCS: 74177; 99285; Q9967; 82435-PO; 82565-PO; 82947-PO; 84132-PO; 84295-PO; 84520-PO; 85014-PO

== ENCOUNTER → 2018-05-24 | Outpatient (CLI) | payer OTHER ==
[~2018-05-24] MED LIST changes: -BACITRACIN 50,000 UNITS/10 ML SYR IRR ONE; -BUPIVACAINE/EPI 0.25% 30 ML SDV ONE; -CHLORHEXIDINE GLUC HIBICLENS 118 ML BTL TP ONE; +IOPAMIDOL (ISOVUE-300) 100 ML BTL ONE; -THROMBIN (BOVINE) 20,000 UNIT VIAL TP ONE; -morphINE PF 5 MG/10 ML INJ IT ONE
== END ==
LOC: FIMAGING 11:46
PROVIDERS: ATTEND Internal Medicine
DX: N28.9 Disorder of kidney and ureter, unspecified (principal)
CPT/HCPCS: 74177; Q9967; 82565-PO

== ENCOUNTER → 2019-01-02 | Outpatient (CLI) | payer OTHER | LOC: FIMAGING 12:38 | PROVIDERS: ATTEND Physician Assistant | DX: M48.02 Spinal stenosis, cervical region (principal); M50.322 Other cervical disc degeneration at C5-C6 level; M48.061 Spinal stenosis, lumbar region without neurogenic claudication; M51.26 Other intervertebral disc displacement, lumbar region ==